=== PATIENT | male | born 1955 | race Caucasian/White ===

== ENCOUNTER 2017-01-20 07:53 | Inpatient (IN) | payer OTHER ==
[~2017-01-20] VITALS: Ht 165.1 cm; Wt 81.2 kg
[~2017-01-20 07:53] MED LIST: ALBU18HF INH; ALPR1TAB2 PO; AMLO10TA2 PO; ATOR40TA78 PO; LOSA100T6 PO
[2017-01-20] MEDS ORDERED: ALBUTEROL/IPRATROPIUM 2.5MG/0.5MG, 3 ML ONE (08:20)
[2017-01-20] MEDS: ALBUTEROL/IPRATROPIUM 2.5MG/0.5MG, 3 ML NPPB SCH ×4 (08:27→21:00)
[2017-01-20] MEDS ORDERED: SODIUM CHLORIDE FLUSH 10ML SYR IVF ONE (08:30)
[2017-01-20 08:54] LABS: BLOOD UREA NITROGEN 15 mg/dL (7-18)
[2017-01-20] MEDS ORDERED: ALBUTEROL 0.5%, 20ML ONE (09:20)
[2017-01-20] MEDS ORDERED: ALBUTEROL/IPRATROPIUM 2.5MG/0.5MG, 3 ML NPPB ONE (09:30)
[2017-01-20] MEDS ORDERED: SODIUM CHLORIDE 0.9% 1,000ML IVBOLUS ONE (09:30)
[2017-01-20] MEDS ORDERED: CEFTRIAXONE PMX 1GM/50ML 50 ML IV ONE (09:30)
[2017-01-20] MEDS ORDERED: ALBUTEROL 0.5%, 20ML NPPB ONE (09:30)
[2017-01-20] MEDS ORDERED: AZITHROMYCIN 500 MG in SODIUM CHLORIDE 0.9% 250 ML IV ONE (09:30)
[2017-01-20] MEDS ORDERED: CEFTRIAXONE PMX 1GM/50ML 50 ML ONE (09:38)
[2017-01-20] MEDS ORDERED: SODIUM CHLORIDE 0.9% 1,000 ML IV ONE (10:53)
[2017-01-20] MEDS ORDERED: TEMPLATE NON-FORMULARY MED. (Losartan Potassium** 100 MG) PO SCH (12:00)
[2017-01-20] MEDS ORDERED: methylPREDNISolone SOD SUCC 125 MG/2 ML IVPush SCH (12:00)
[2017-01-20] MEDS ORDERED: TEMPLATE NON-FORMULARY MED. (Amlodipine Besylate (Amlodipine Besylate**) 10 MG) PO SCH (12:00)
[2017-01-20 12:13] VITALS: BP 129/82
[2017-01-20] MEDS: CEFTRIAXONE PMX 1GM/50ML 50 ML IV SCH (12:27)
[2017-01-20] MEDS: DOXYCYCLINE 100 MG in DEXTROSE 5% 250 ML IV SCH ×3 (12:29→23:56)
[2017-01-20] MEDS ORDERED: POLYETHYLENE GLYCOL 17 GM PACKET PO PRN (12:30)
[2017-01-20] MEDS ORDERED: BISACODYL 10 MG SUPP PR PRN (12:30)
[2017-01-20] MEDS: ENOXAPARIN 40 MG/0.4 ML SQ SCH (12:30)
[2017-01-20] MEDS ORDERED: DOCUSATE 100 MG CAPSULE PO PRN (12:30)
[2017-01-20] MEDS ORDERED: HYDROcodone/APAP 5/325 TABLET PO PRN (12:30)
[2017-01-20] MEDS ORDERED: ACETAMINOPHEN 325 MG TABLET PO PRN (12:30)
[2017-01-20] MEDS ORDERED: ONDANSETRON ODT 4 MG PO PRN (12:30)
[2017-01-20] MEDS ORDERED: ONDANSETRON 2MG/ML, 2ML IVP PRN (12:30)
[2017-01-20] MEDS: GUAIFENESIN 200 MG TABLET PO SCH ×3 (12:35→20:31)
[2017-01-20] MEDS ORDERED: ALBUTEROL/IPRATROPIUM 2.5MG/0.5MG, 3 ML NPPB PRN (13:00)
[2017-01-20] MEDS ORDERED: MAGNESIUM SULFATE PMX 4GM/100M 100 ML IV ONE (13:30)
[2017-01-20] MEDS: methylPREDNISolone SOD SUCC 125 MG/2 ML IVPush SCH ×3 (13:42→20:32)
[2017-01-20] MEDS: SODIUM CHLORIDE 0.9% 1,000 ML IV SCH (13:43)
[2017-01-20 15:35] VITALS: BP 132/74
[2017-01-20 19:15] VITALS: BP 157/77
[2017-01-20] MEDS: ATORVASTATIN 40 MG TABLET PO SCH (20:31)
[2017-01-20] MEDS: FAMOTIDINE 20 MG TABLET PO SCH (20:31)
[2017-01-21] MEDS: ALBUTEROL/IPRATROPIUM 2.5MG/0.5MG, 3 ML NPPB SCH ×3 (01:00→21:54)
[2017-01-21 02:36] VITALS: BP 125/75
[2017-01-21 04:34] LABS: BLOOD UREA NITROGEN 11 mg/dL (7-18)
[2017-01-21] MEDS: SODIUM CHLORIDE 0.9% 1,000 ML IV SCH (04:44)
[2017-01-21] MEDS: GUAIFENESIN 200 MG TABLET PO SCH ×4 (04:44→19:31)
[2017-01-21 07:43] VITALS: BP 120/70
[2017-01-21] MEDS: methylPREDNISolone SOD SUCC 125 MG/2 ML IVPush SCH (08:09)
[2017-01-21] MEDS: LOSARTAN 50MG TABLET PO SCH (08:10)
[2017-01-21] MEDS: AMLODIPINE 5 MG TABLET PO SCH (08:11)
[2017-01-21] MEDS: CEFTRIAXONE PMX 1GM/50ML 50 ML IV SCH (11:47)
[2017-01-21] MEDS: ENOXAPARIN 40 MG/0.4 ML SQ SCH (11:50)
[2017-01-21 12:14] LABS: OCCBLD OBC PASS
[2017-01-21] MEDS: DOXYCYCLINE 100 MG in DEXTROSE 5% 250 ML IV SCH ×2 (12:24→23:32)
[2017-01-21 14:39] VITALS: BP 132/85
[2017-01-21] MEDS: FAMOTIDINE 20 MG TABLET PO SCH (19:31)
[2017-01-21] MEDS: ATORVASTATIN 40 MG TABLET PO SCH (19:31)
[2017-01-21 19:33] VITALS: BP 142/83
[2017-01-22 02:01] VITALS: BP 124/84
[2017-01-22] MEDS: GUAIFENESIN 200 MG TABLET PO SCH ×2 (05:06→07:45)
[2017-01-22 07:30] VITALS: BP 129/75
[2017-01-22] MEDS: LOSARTAN 50MG TABLET PO SCH (07:37)
[2017-01-22] MEDS: AMLODIPINE 5 MG TABLET PO SCH (07:37)
[2017-01-22] MEDS: ALBUTEROL/IPRATROPIUM 2.5MG/0.5MG, 3 ML NPPB SCH (07:45)
[2017-01-22] MEDS ORDERED: IPRA3AMP NPPB (08:36)
[2017-01-22] MEDS ORDERED: ALBU18HF INH (08:36)
[2017-01-22] MEDS ORDERED: DOXY100T PO (08:36)
[2017-01-22] MEDS ORDERED: CEFD300C37 PO (08:36)
[2017-01-22] MEDS ORDERED: METH4TAB2 PO (08:36)
[2017-01-22] MEDS: CEFTRIAXONE PMX 1GM/50ML 50 ML IV SCH (11:23)
[2017-01-22] MEDS: DOXYCYCLINE 100 MG in DEXTROSE 5% 250 ML IV SCH (11:56)
[2017-01-22] MEDS: ENOXAPARIN 40 MG/0.4 ML SQ SCH (11:56)
== END 2017-01-22 13:36 | disposition home or self-care (01) | DRG 193 ==
LOC: ED 08:42 → EDIP 10:58 → 3NW 12:46
PROVIDERS: ADMIT Hospitalist; ATTEND Hospitalist
DX: J18.9 Pneumonia, unspecified organism (principal); J96.01 Acute respiratory failure with hypoxia; J45.52 Severe persistent asthma with status asthmaticus; E87.2 Acidosis; I10 Essential (primary) hypertension; E78.5 Hyperlipidemia, unspecified; D75.89 Other specified diseases of blood and blood-forming organs; R73.9 Hyperglycemia, unspecified; F41.9 Anxiety disorder, unspecified
CPT/HCPCS: 36415; 71010; 80048; 80329; 82040; 82272; 82607; 82746; 83605; 83735; 84145; 84443; 85025; 87040; 93005; 94640; 94644; 96365; 96367; J0456; J0696; J7060; J7620; G0480; J2930; J3475; J7030; J7050; J7512